=== PATIENT | female | born 1985 | race Caucasian/White ===

== ENCOUNTER → 2016-06-08 | Outpatient (CLI) | payer BC ==
[~2016-06-08] MED LIST: NO MEDS
--- NOTE | 2016-06-08 15:13 | Diagnostic Imaging Report ---
INDICATION: Anatomical survey. COMPARISON: None. DISCUSSION: Transabdominal sonographic evaluation of the gravid uterus was performed. Single live intrauterine at 19 weeks 5 days by sonographic measurements. EDC by today's ultrasound is 10/28/2016. Biparietal diameter measures 4.5 cm. Head circumference measures 16.7 cm. Abdominal circumference measures 14.1 cm. Femur length measures 3.1 cm. presentation is breech. Placenta is located anteriorly with no placenta previa. Normal amniotic fluid index measuring 14.3 cm. heart rate measures 150 beats per minute. There is poor visualization of the right outflow tract due to positioning. Otherwise there is good visualization of the stomach, kidneys, bladder, aorta, brain, three-vessel cord and insertion, four-chamber heart, spine, and extremities. gender is male. IMPRESSION: 1. Single live intrauterine at 19 weeks 5 days by sonographic measurements. 2. Poor visualization of the right outflow tract due to positioning. Outflow tracts can be very difficult to fully visualize. Short-term sonographic followup could be performed as clinically indicated. The remainder of the anatomical survey appears within normal limits. Dictated by: Dictated on workstation # [id number]
== END ==
LOC: RAD 13:34
PROVIDERS: ATTEND Family Medicine
DX: Z36 Encounter for antenatal screening of mother (principal)
CPT/HCPCS: 76805